=== PATIENT | male | born 1960 | race African-American/Black ===

== ENCOUNTER 2018-10-17 16:16 | Emergency (ER) | payer BC ==
[~2018-10-17] VITALS: Ht 177.8 cm; Wt 87.0 kg
[2018-10-17] MEDS ORDERED: MORPHINE SULFATE 4 MG/ML CPJ (NOT FOR IM USE) IV ONE (20:45)
[2018-10-17 21:52] VITALS: BP 112/78
== END 2018-10-17 21:53 | disposition home or self-care (01) ==
LOC: ER 16:16
DX: M25.512 Pain in left shoulder (principal); M25.511 Pain in right shoulder; F17.210 Nicotine dependence, cigarettes, uncomplicated; Z88.0 Allergy status to penicillin; Z87.442 Personal history of urinary calculi; Z98.890 Other specified postprocedural states
CPT/HCPCS: 96374; 99283; J2270; Z7610

== ENCOUNTER 2021-01-09 10:23 | Emergency (ER) | payer BC, MEDICAID ==
[~2021-01-09] VITALS: Ht 177.8 cm; Wt 91.0 kg
[2021-01-09 11:48] LABS: BASOPHILS % 0.2 % (0.0-2.0); EOSINOPHILS % 0.1 % (0.0-5.0); HEMATOCRIT. 49.1 % (42.0-52.0); HEMOGLOBIN. 15.7 g/dL (14.0-18.0); LYMPHOCYTES % 12.9 % (20.0-50.0); MEAN CORPUSCULAR HEMOGLOBIN 23.8 pg (28.0-32.0); MEAN CORPUSCULAR VOLUME 74.7 fL (80.0-94.0); MEAN PLATELET VOLUME 8.1 fl (7.4-10.4); MONOCYTES % 8.2 % (2.0-8.0); NEUTROPHILS % 78.6 % (40.0-76.0); PLATELET 355 x1000/uL (130-400); RED BLOOD CELL COUNT 6.57 mill/uL (4.7-6.1); RED CELL DISTRIBUTION WIDTH 14.3 % (11.6-14.6)
[2021-01-09 11:55] LABS: CHLORIDE 96 mEq/L (98-107)
[2021-01-09 11:58] LABS: INR 1.1; PROTHROMBIN TIME 11.7 sec (9.6-11.0)
[2021-01-09] MEDS ORDERED: KETOROLAC 30MG/ML VIAL IV STA (12:47)
[2021-01-09] MEDS ORDERED: ONDANSETRON HCL 4MG/2ML INJ IV STA (12:47)
[2021-01-09] MEDS ORDERED: METOCLOPRAMIDE HCL 10MG/2ML VIAL IV STA (12:47)
[2021-01-09] MEDS ORDERED: SODIUM CHLORIDE 0.9% 1,000 ML IV ONE (13:00)
[2021-01-09] MEDS ORDERED: MORPHINE SULFATE 2 MG/ML CPJ (NOT FOR IM USE) IV ONE (13:00)
[2021-01-09] MEDS ORDERED: IOHEXOL-300 100 ML BOTTLE ONE (15:20)
[2021-01-09] MEDS ORDERED: TRAM50TA3 MT (15:29)
[2021-01-09 15:35] VITALS: BP 160/99
== END 2021-01-09 16:01 | disposition home or self-care (01) ==
LOC: ER 10:23
DX: R07.89 Other chest pain (principal); G89.29 Other chronic pain; K57.30 Diverticulosis of large intestine without perforation or abscess without bleeding; F11.10 Opioid abuse, uncomplicated; Z88.0 Allergy status to penicillin
CPT/HCPCS: 36415; 74177; 80053; 80320; 83690; 85025; 85610; 93005; 96361; 96374; 96375; 99285; J1885; J2270; J2405; J2765; J7030; Q9967; G0480

== ENCOUNTER 2024-10-03 14:26 | Emergency (ER) | payer SELFPAY ==
[~2024-10-03] VITALS: Ht 177.8 cm; Wt 85.0 kg
[~2024-10-03 14:26] MED LIST: TRAM50TA3 MT
[2024-10-03 14:32] VITALS: O2SAT 98
[2024-10-03] MEDS ORDERED: CAPS42.514 TP (17:18)
[2024-10-03] MEDS ORDERED: ACET-2708 MT (17:18)
[2024-10-03] MEDS: KETOROLAC 30MG/ML VIAL IM ONE (17:33)
[2024-10-03 18:00] VITALS: BP 154/77; PULSE 89; RESP 16; TEMP 36.7; O2SAT 98
== END 2024-10-03 18:00 | disposition home or self-care (01) ==
LOC: ER 14:26
DX: M25.562 Pain in left knee (principal); I10 Essential (primary) hypertension; Z98.890 Other specified postprocedural states; Z88.0 Allergy status to penicillin; Z79.899 Other long term (current) drug therapy
CPT/HCPCS: 73562; 96372; 99283; J1885; Z7610